=== PATIENT | male | born 1985 | race Two or more races ===

== ENCOUNTER → 2024-06-29 08:15 | Outpatient (REF) | payer BC, SELFPAY | LOC: MRI 3T 08:15 | PROVIDERS: ATTENDING PHYSICIAN Physician Assistant Surgical; FAMILY PHYSICIAN Student in an Organized Health Care Education/Training Program | DX: M54.16 Radiculopathy, lumbar region (principal); M54.50 Low back pain, unspecified; R20.2 Paresthesia of skin | CPT/HCPCS: 72158; A9575 ==